=== PATIENT | female | born 1965 | race Caucasian/White ===

== ENCOUNTER → 2018-05-10 07:02 | Outpatient (CLI) | payer OTHER, SELFPAY ==
[2018-05-12 10:21] LABS: Vitamin D,25 Hydroxy 106.2 ng/mL (29.95-100.01)
== END ==
PROVIDERS: Family Provider Family Medicine; PCP Family Medicine; Visit Provider Family Medicine
DX: N39.0 Urinary tract infection, site not specified (principal); E55.9 Vitamin D deficiency, unspecified
CPT/HCPCS: 36415; 82306; 87077; 87086; 87088

== ENCOUNTER → 2018-11-04 06:57 | Outpatient (CLI) | payer OTHER, SELFPAY ==
[2018-11-04 10:31] LABS: ALB/GLOB Ratio 1.1 RATIO (0.9-2.4); AST(SGOT) 12 U/L (15-37); Alanine Aminotransfer ALT/SGPT 16 U/L (13-56); Albumin, Serum 3.8 g/dL (3.2-5.0); Alkaline Phosphatase 87 U/L (45-117); Anion Gap 9 (5-15); BUN 9 mg/dL (7-18); BUN/Creat Ratio 10.3 RATIO (10-20); Calcium,Total 9.2 mg/dL (8.5-10.1); Chloride 106 mmol/L (98-107); Cholesterol 184 mg/dL (200); Creatinine, Serum 0.87 mg/dL (0.55-1.02); EST Glomerular Filtration Rate 73 mL/min (>60); Est Glom Filt Rate - Afr Amer 88 mL/min (>60); Globulin 3.4 g/dL (2.2-4.2); Glucose 88 mg/dL (74-106); High Density Lipoprotein 39 mg/dL; Potassium 3.4 mmol/L (3.5-5.1); Protein, Total 7.2 g/dL (6.4-8.2); Sodium Level 142 mmol/L (136-145); Triglycerides 112 mg/dL; Very Low Density Lipoprotein 22 mg/dL (5-40)
[2018-11-04 10:32] LABS: Vitamin D,25 Hydroxy 78.3 ng/mL (29.95-100.01)
== END ==
PROVIDERS: Family Provider Family Medicine; PCP Family Medicine; Referring Provider Family Medicine; Visit Provider Family Medicine
DX: E78.5 Hyperlipidemia, unspecified (principal); E55.9 Vitamin D deficiency, unspecified; E87.6 Hypokalemia
CPT/HCPCS: 36415; 80053; 80061; 82306

== ENCOUNTER → 2020-04-23 09:01 | Outpatient (CLI) | payer OTHER, SELFPAY ==
[2020-04-23 09:15] LABS: Absolute Lymphocyte Count 2.45 X10^3/uL (0.83-4.51); Absolute Neutrophil Count 4.2 X10^3/uL (2.0-7.7); Basophil# 0.03 X10^3/uL; Basophil% 0.4 % (0-1); Eosinophil# 0.12 X10^3/uL; Eosinophils% 1.6 % (0-5); Hematocrit 44.4 % (37-47); Hemoglobin 14.7 g/dL (12.0-15.0); Lymphocyte # 2.45 X10^3/ul; Lymphocyte % 32.6 % (19-41); Mean Corp Hgb Conc 33.1 g/dL (32-36); Mean Corpuscular Hgb 30.8 pg (27.0-32.0); Mean Corpuscular Volume 93.1 fL (81-99); Mean Platelet Vol. 9.2 fl (6.2-12.0); Monocyte# 0.75 X10^3/uL; NRBC Flagged by Analyzer 0 % (0-5); Neutrophil # 4.16 X10^3/uL (2.7-7.7); Neutrophil % 55.3 % (47-70); Platelet Count 351 K/mm3 (150-450); RBC Distribution Width CV 12.1 % (11.6-14.6); RBC Distribution Width SD 41.8 fl (35.1-43.9); Red Blood Count 4.77 M/mm3 (4.2-5.4); White Blood Count 7.5 K/mm3 (4.4-11.0)
[2020-04-23 09:24] LABS: Color, Urine Yellow (Yellow); Glucose, Dipstick Normal (Normal); Ketone-Dipstick Negative (Negative); Leukocyte Esterase-Dipstick Negative /ul (Negative); Nitrite-Dipstick Negative (Negative); Occult Blood-Urine 25 /ul (Negative); Protein-Dipstick Negative (Negative); Specific Gravity, Urine 1.005 (1.002-1.030); Urine Bilirubin Dipstick Negative (Negative); Urine Clarity Clear (Clear); Urine Urobilinogen Normal (Normal); Urine pH 6.5 (5.0 - 8.0)
[2020-04-23 09:49] LABS: ALB/GLOB Ratio 1.3 RATIO (0.9-2.4); AST(SGOT) 13 U/L (15-37); Alanine Aminotransfer ALT/SGPT 14 U/L (13-56); Albumin, Serum 4.4 g/dL (3.2-5.0); Alkaline Phosphatase 107 U/L (45-117); Anion Gap 6 (5-15); BUN 9 mg/dL (7-18); BUN/Creat Ratio 10.1 RATIO (10-20); Bilirubin, Direct 0.13 mg/dL (0.00-0.30); Calcium,Total 9.4 mg/dL (8.5-10.1); Chloride 108 mmol/L (98-107); Cholesterol 234 mg/dL (200); Creatinine, Serum 0.89 mg/dL (0.55-1.02); EST Glomerular Filtration Rate 71 mL/min (>60); Est Glom Filt Rate - Afr Amer 86 mL/min (>60); Globulin 3.5 g/dL (2.2-4.2); Glucose 82 mg/dL (74-106); High Density Lipoprotein 40 mg/dL; LDH 172 U/L (84-246); Phosphorus 3.7 mg/dL (2.5-4.9); Potassium 3.4 mmol/L (3.5-5.1); Protein, Total 7.9 g/dL (6.4-8.2); Sodium Level 141 mmol/L (136-145); Triglycerides 163 mg/dL; Uric Acid 4.5 mg/dL (2.6-6.0); Very Low Density Lipoprotein 33 mg/dL (5-40)
== END ==
PROVIDERS: PCP Family Medicine
DX: Z00.00 Encounter for general adult medical examination without abnormal findings (principal)

== ENCOUNTER 2021-07-01 16:34 | Emergency (ER) | payer OTHER, SELFPAY ==
[2021-07-01 16:36] VITALS: BP 151/71; PULSE 84; RESP 16; TEMP 36.1; O2SAT 100; BMI 16.9
[2021-07-01 16:53] VITALS: BP 160/65; PULSE 65; RESP 15; O2SAT 100
--- NOTE | 2021-07-01 16:53 | EKG12_ITS ---
Test Reason : CHEST PAIN Blood Pressure : / mmHG Vent. Rate : 075 BPM Atrial Rate : 075 BPM P-R Int : 126 ms QRS Dur : 082 ms QT Int : 386 ms P-R-T Axes : 051 074 055 degrees QTc Int : 431 ms Normal sinus rhythm Normal ECG Confirmed by LISBET RAMIRES, ENEDELIA ([id number]), editor news SOL STUART ([id number]) on 07/03/2021 1:30:27 PM Referred By: CARMENCITA Confirmed By:ENEDELIA FRAUSTO MD
[2021-07-01] MEDS: Aspirin 81 MG TAB.CHEW 324 MG PO (17:02)
[2021-07-01] MEDS: Ondansetron 4 MG/2 ML Vial IV (17:02)
[2021-07-01 17:07] LABS: Absolute Lymphocyte Count 2.04 X10^3/uL (0.83-4.51); Absolute Neutrophil Count 9.9 X10^3/uL (2.0-7.7); Basophil# 0.03 X10^3/uL; Basophil% 0.2 % (0-1); Eosinophil# 0.07 X10^3/uL; Eosinophils% 0.6 % (0-5); Hematocrit 40.9 % (37-47); Hemoglobin 13.9 g/dL (12.0-15.0); Lymphocyte # 2.04 X10^3/ul (0.83-4.51); Lymphocyte % 16.1 % (19-41); Mean Corpuscular Hgb 31.4 pg (27.0-32.0); Mean Corpuscular Volume 92.3 fL (81-99); Mean Platelet Vol. 8.9 fl (6.2-12.0); Monocyte# 0.57 X10^3/uL; Monocyte% 4.5 % (0-10); NRBC Flagged by Analyzer 0 % (0-5); Neutrophil # 9.89 X10^3/uL (2.7-7.7); Neutrophil % 78.3 % (47-70); Platelet Count 384 K/mm3 (150-450); RBC Distribution Width SD 41.2 fl (35.1-43.9); Red Blood Count 4.43 M/mm3 (4.2-5.4); White Blood Count 12.6 K/mm3 (4.4-11.0)
--- NOTE | 2021-07-01 17:21 | ED.VIS.CHEST ---
HPI History of Present Illness Chief Complaint: Chest Pain Informant: patient Narrative Narrative: 56-year-old female presenting with chest pain. Patient states this started earlier today and has been intermittent throughout the day. She complains of associated shortness of breath and nausea. She has not had these symptoms in the past. She states initially she felt this was acid reflux but it did not improve with Tums and feels different than her previous acid reflux. Prior Similar Symptoms: No Recent Illness/Hospitalization: No CVD Risk Factors: Positive for Hypercholesterolemia and Smoking [facility] Medical History History of hyperlipidemia Home Medications ascorbic acid (vitamin C) [Vitamin C] 1 g PO DAILY 07/01/21 [History Last Taken Unknown] cholecalciferol (vitamin D3) [Vitamin D3] 50 mcg PO DAILY 07/01/21 [History Last Taken Unknown] melatonin 10 mg PO QHS 07/01/21 [History Last Taken Unknown] temazepam 15 mg PO QHS PRN 07/01/21 [History Last Taken Unknown] Allergy/AdvReac Type Severity Reaction Status Date / Time No Known Allergies Allergy Verified 07/01/21 17:02 Surgical History History of tonsillectomy and adenoidectomy Social History Smoking Status: Current every day smoker tobacco type: cigarettes ROS ROS ED Constitutional Constitutional ED: Denies fever(s) Eyes Eyes: Denies change in vision ENT ENT ED: Denies rhinorrhea or sore throat Cardiovascular Cardiovascular: Reports chest pain; Denies palpitations Respiratory/Chest Respiratory/Chest: Reports dyspnea; Denies cough Gastrointestinal Gastrointestinal: Reports nausea; Denies abdominal pain, diarrhea or vomiting Genitourinary Genitourinary ED: Denies dysuria Musculoskeletal Musculoskeletal: Denies myalgias Integumentary Denies rash Neurologic Neurologic: Denies headache(s) Psychiatric Psychiatric: Denies suicidal thoughts EXAM Physical Exam Const Vital Signs: 07/01/21 16:36 07/01/21 16:53 07/01/21 16:59 Temperature 97 F L Temperature Source Temporal Pulse Rate 84 65 Respiratory Rate 16 15 Respiratory Effort Normal Respiratory Pattern Normal Blood Pressure 151/71 H 160/65 H Blood Pressure Mean 97 96 Pulse Ox 100 100 Oxygen Delivery Method Room Air 07/01/21 18:12 07/01/21 19:00 07/01/21 20:43 Temperature Temperature Source Pulse Rate 72 75 66 Respiratory Rate 22 H 12 18 Respiratory Effort Respiratory Pattern Blood Pressure 150/86 H 131/72 H 131/72 H Blood Pressure Mean 107 91 91 Pulse Ox 99 100 99 Oxygen Delivery Method Room Air Room Air Room Air 07/01/21 21:19 Temperature Temperature Source Pulse Rate 67 Respiratory Rate 18 Respiratory Effort Respiratory Pattern Blood Pressure Blood Pressure Mean Pulse Ox 98 Oxygen Delivery Method Room Air Positive well nourished and well developed General Appearance ED: well developed HEENT Reports normocephalic and head/scalp atraumatic Eyes PERRL and EOMs intact bilaterally Neck supple General: Negative for tenderness Chest Wall inspection of chest normal Resp normal respiratory effort and clear to auscultation bilaterally Cardio regular rate and regular rhythm GI soft to palpation, non-tender and non-distended Palpation: soft; Negative for guarding or rebound tenderness present no CVA tenderness Extremity normal to inspection General Extremety ED: Negative for edema or tenderness General Extremity: Negative for edema Neuro oriented x3 Sensorium / Orientation: alert Psych mental status grossly normal Skin no rashes or lesions noted Heart Score History: Slightly/Non-Suspicious ECG: Normal Age: >45 - <65 years Risk Factors: 1 or 2 Risk Factors Troponin: </= Normal Limit Score: 2 MDM MDM MDM Narrative Medical decision making narrative: Patient was given aspirin, morphine, Zofran. CBC, chemistries unremarkable. Troponin is 6. Heart score is 2. Patient is resting comfortably on reevaluation. Using shared decision making delta troponin will be obtained. Delta troponin is negative. Patient is resting comfortably on reevaluation. She is advised to follow-up with her primary care physician. Advised return to ED for worsening complaints. Lab Data Attestation: I reviewed the patient's lab results. Labs: Laboratory Results - last 24 hr 07/01/21 07/01/21 07/01/21 17:00 17:00 20:25 WBC 12.6 H RBC 4.43 Hgb 13.9 Hct 40.9 MCV 92.3 MCH 31.4 MCHC 34.0 RDW Std Deviation 41.2 RDW Coeff of Giulia 12.0 Plt Count 384 MPV 8.9 Immature Gran % (Auto) 0.300 Neut % (Auto) 78.3 H Lymph % (Auto) 16.1 L [place] % (Auto) 4.5 Eos % (Auto) 0.6 Baso % (Auto) 0.2 Absolute Neuts (auto) 9.9 H Absolute Lymphs (auto) 2.04 Nucleated RBC % 0 Sodium 140 Potassium 3.0 L Chloride 105 Carbon Dioxide 29.0 Anion Gap 6 BUN 12 Creatinine 0.81 Estim Creat Clear Calc 51.17 Est GFR (MDRD) Af Amer 95 Est GFR (MDRD) Non-Af 78 BUN/Creatinine Ratio 14.8 Glucose 146 H Calcium 9.7 Troponin I High Sens 6 7 Radiography Chest X-Ray - ED: 1 View, Read by ED Physician and Read by Radiologist Diagnostic Testing: Radiology Impression Chest X-Ray 07/01/21 17:29 IMPRESSION: Nonacute portable x-ray examination of the chest. Electronically Signed: Altaf Fitzgerald MD ([place]) at 18:01 EDT , Service support , EKG Initial EKG: Attestation: I personally reviewed and interpreted this EKG as follows: Interpretation: Sinus Rhythm and No Acute Injury Pattern Discharge Plan Triage Chief Complaint: Chest Pain ED Provider: Vilma Moreno Dx/Rx/DC Orders Instructions: ED Chest Pain, Uncertain Cause Prescriptions: No Action temazepam 15 mg Capsule 15 mg PO QHS PRN (Reason: insomnia) RF: 0 ascorbic acid (vitamin C) [Vitamin C] 1,000 mg Tablet 1 g PO DAILY RF: 0 cholecalciferol (vitamin D3) [Vitamin D3] 50 mcg (2,000 unit) Capsule 50 mcg PO DAILY RF: 0 melatonin 10 mg Tablet 10 mg PO QHS RF: 0 Primary Care Provider: Love Shaw Referrals: Love Shaw DO [Primary Care Provider] - Disposition Disposition: Home, Self Care
[2021-07-01 17:29] LABS: Anion Gap 6 (5-15); BUN 12 mg/dL (7-18); BUN/Creat Ratio 14.8 RATIO (10-20); Calcium,Total 9.7 mg/dL (8.5-10.1); Chloride 105 mmol/L (98-107); Creatinine, Serum 0.81 mg/dL (0.55-1.02); EST Glomerular Filtration Rate 78 mL/min (>60); Est Glom Filt Rate - Afr Amer 95 mL/min (>60); Estimated Creatinine Clearance 51.17 ml/min; Glucose 146 mg/dL (74-106); Sodium Level 140 mmol/L (136-145); Troponin-I HS 6 pg/mL (3.0-54.0)
--- NOTE | 2021-07-01 17:29 | RAD_ITS ---
STUDY: X-RAY CHEST REASON FOR EXAM: Female, 56 years old. chest pain TECHNIQUE: AP COMPARISON: None. FINDINGS: EKG leads project over the chest. The lungs are clear and expanded. There is no demonstrated pleural abnormality. Normal size heart. Normal mediastinum and maxwell. Normal visualized pulmonary arteries. Normal visualized aortic arch and descending thoracic aorta. Normal visualized thoracic spine. Normal visualized ribs, clavicles, and shoulders. There is no demonstrated abnormality of the visualized soft tissue structures of the upper abdomen. RAD/Chest 1 View (Portable) IMPRESSION: Nonacute portable x-ray examination of the chest. Electronically Signed: Altaf Fitzgerald MD ([place]) at 18:01 EDT , Service support ,
[2021-07-01 18:12] VITALS: BP 150/86; PULSE 72; RESP 22; O2SAT 99
[2021-07-01 19:00] VITALS: BP 131/72; PULSE 75; RESP 12; O2SAT 100
[2021-07-01 20:43] VITALS: BP 131/72; PULSE 66; RESP 18; O2SAT 99
[2021-07-01 20:46] LABS: Troponin-I HS 7 pg/mL (3.0-54.0)
[2021-07-01 21:19] VITALS: PULSE 67; RESP 18; O2SAT 98
== END 2021-07-01 22:07 | disposition home or self-care (01) ==
PROVIDERS: Emergency Provider Emergency Medicine; PCP Family Medicine
DX: R07.9 Chest pain, unspecified (principal); R06.02 Shortness of breath; R11.0 Nausea; E78.5 Hyperlipidemia, unspecified; K21.9 Gastro-esophageal reflux disease without esophagitis; F17.210 Nicotine dependence, cigarettes, uncomplicated; Z79.899 Other long term (current) drug therapy
CPT/HCPCS: 71045; 80048; 84484; 85025; 93005; 96374; 99285; A4216; J2405

== ENCOUNTER → 2024-07-27 | Outpatient (CLI) | payer OTHER, SELFPAY ==
[2024-07-27 15:47] LABS: Vitamin D,25 Hydroxy 33.8 ng/mL
== END | disposition home or self-care (01) ==
LOC: BFHLAB 11:16
PROVIDERS: PCP Nurse Practitioner Family; Referring Provider Nurse Practitioner Family; Visit Provider Nurse Practitioner Family
DX: E55.9 Vitamin D deficiency, unspecified (principal)
CPT/HCPCS: 36415; 82306

== ENCOUNTER → 2025-06-11 | Outpatient (CLI) | payer OTHER, SELFPAY | END | disposition home or self-care (01) | LOC: LAB 13:55 | PROVIDERS: PCP Family Medicine; Visit Provider Nurse Practitioner Family | DX: R73.01 Impaired fasting glucose (principal) | CPT/HCPCS: 83036 ==

== ENCOUNTER → 2025-07-01 | Outpatient (CLI) | payer OTHER, SELFPAY ==
[2025-07-01 08:57] LABS: Ferritin 120 ng/mL (22-378); Free T3 3.5 pg/mL (2.18-3.98); Vitamin B12 278 pg/mL (180-914); Vitamin D,25 Hydroxy 28.5 ng/mL (30-100)
[2025-07-01 09:10] LABS: CRP < 3.00 mg/L (0.0-3.0); Iron 101 ug/dL (50-170)
== END | disposition home or self-care (01) ==
LOC: LAB 07:47
PROVIDERS: PCP Family Medicine; Referring Provider Family Medicine; Visit Provider Family Medicine
DX: E03.9 Hypothyroidism, unspecified (principal); M25.50 Pain in unspecified joint; R53.83 Other fatigue; E55.9 Vitamin D deficiency, unspecified; E53.8 Deficiency of other specified B group vitamins; E61.1 Iron deficiency
CPT/HCPCS: 36415; 82306; 82607; 82728; 83540; 84439; 84443; 84481; 85652; 86140; 86376; 86800